=== PATIENT | female | born 1955 | race Asian ===

== ENCOUNTER 2024-12-13 12:40 | Emergency (ER) | payer MEDICARE, SELFPAY ==
[2024-12-13] VITALS (12 sets, daily range): BP systolic 107–134; BP diastolic 58–68; PULSE 60–73; RESP 16–20; TEMP 36.8; O2SAT 95–100; BMI 17.9
--- NOTE | 2024-12-13 13:09 | EKG_ITS ---
[address] [address] Test Date: 2024-12-13 Pat Name: Leighann Ocampo Department: [facility] Room: Gender: Female Scale Technician: JOHN : 1955 Requested By: Order Number: [id number] Reading MD: Ilya Joseph Measurements Intervals [place] Rate: 57 P: 83 LA: 158 QRS: 32 QRSD: 88 T: -38 QT: 404 QTc: 393 Interpretive Statements Sinus bradycardia Nonspecific T wave abnormality Electronically Signed On 12-13-2024 15:21:23 PST by Ilya Joseph
[2024-12-13 13:35] LABS: Add Manual Diff / Slide Review NO; Basophils Absolute Auto 200 /uL (0-100); Basophils Percent Auto 2.1 % (0-2); Eosinophils Absolute Auto 600 /uL (0-450); Hematocrit 36.6 % (36-46); Hemoglobin 11.9 g/dL (12.0-16.0); Lymphocytes Absolute Auto 1600 /uL (1100-4500); Mean Corpuscular HGB Conc 32.7 % (30-36); Mean Corpuscular Hemoglobin 27.1 PG (26-34); Monocytes Absolute Auto 600 /uL (0-900); Monocytes Percent Auto 7.7 % (3-14); Neutrophils Absolute Auto 5300 /uL (1500-7000); Neutrophils Percent Auto 64.2 % (50-75); Platelet Count 267 X10^3/uL (150-400); Red Blood Cell Count 4.41 X10^6/uL (4.0-5.2); Red Cell Distribution Width 14.9 % (11.6-14.8); White Blood Cell Count 8.3 X10^3/uL (4.5-11.0)
[2024-12-13 13:43] LABS: Alanine Aminotransferase 35 IU/L (<35); Albumin 4.5 g/dL (3.5-5.0); Albumin Globulin Ratio 1.3 (1.0-2.8); Alkaline Phosphatase 56 U/L (38-126); Aspartate Aminotransferase 85 IU/L (14-36); BUN Creatinine Ratio 18.4 (6-22); Bilirubin Total 0.6 mg/dL (0.2-1.3); Blood Urea Nitrogen 18 mg/dL (7-17); Calcium 9.6 mg/dL (8.4-10.2); Carbon Dioxide 28 mmol/L (22-32); Chloride 104 mmol/L (98-107); Estimated Glomerular Filt Rate > 60 mL/min (>60); Globulin 3.4 g/dL (1.7-4.1); Glucose 97 mg/dL (80-110); HEMOLYSIS < 15 (0-50); Lipase 276 U/L (23-300); Potassium 3.7 mmol/L (3.4-5.1); Sodium 139 mmol/L (137-145); Total Protein 7.9 g/dL (6.3-8.2)
--- NOTE | 2024-12-13 17:02 | PC.NURSE ---
This RN's first interaction with patient.
[2024-12-13 17:19] LABS: Ictotest Urine Negative (Negative)
--- NOTE | 2024-12-13 17:39 | ED.ABDPAIN ---
HPI - Abdominal Pain <Socorro Islas DO - Last Filed: 12/14/24 18:16> General Chief Complaint: Abdominal Pain Stated Complaint: abd px Time Seen by Provider: 12/13/24 17:33 Source: patient, RN notes reviewed and old records reviewed Mode of arrival: Ambulatory Limitations: no limitations History of Present Illness HPI narrative: 69-year-old female history of CVA on aspirin, hypertension, dyslipidemia, reflux remote history of GI bleed who presents with complaint of epigastric pain. Patient states she was playing out on the porch in the snow then went and had a snack then sat down and was resting on the couch when she got epigastric pain that she describes as very intense. Patient states it lasted throughout the night and into today. She would some nausea and dry heaves early this morning. No fevers or chills. States pain does not radiate to her back or anywhere else. It is resolved almost completely resolved at this time. Denies any shortness of breath. Denies any black or bloody stools no diarrhea or constipation. No urinary symptoms. No new swelling in extremities. Patient states has not been having symptoms recently. Took an omeprazole this morning and after an hour to started to decrease. Patient states she takes an aspirin 81 mg daily, amlodipine 5 mg, telmisartan 40 mg atorvastatin 20 mg as well as omeprazole 20 mg daily. No prior surgeries. Has a allergy to medication but they do not know what it is. Patient and notes she did have a blood transfusion after having either gastritis or an ulcer remotely. Her primary care is through the [employer] [facility]. She sees neurology at [facility]. She was accompanied by her Related Data Previous Rx's Medication Instructions Recorded aluminum-mag hydroxide-simethicone 10 ml PO QID PRN dyspepsia #3,000 12/13/24 200 mg-200 mg-20 mg/5 mL oral susp mL (Maalox Advanced) Review of Systems <Socorro Islas DO - Last Filed: 12/14/24 18:16> Review of Systems ROS Unobtainable: All systems reviewed & are unremarkable except as noted in HPI and below Patient History <Socorro Islas DO - Last Filed: 12/14/24 18:16> Social History Smoking Status: Never smoker Smoking Status: Never smoker Exam <Socorro Islas DO - Last Filed: 12/14/24 18:16> Narrative Exam Narrative: GENERAL: Alert and oriented x three, female in mild distress HEENT: Head normocephalic, atraumatic, EOMI, pupils reactive, face symmetric, moist mucous membranes NECK: Supple, full range of motion CARDIOVASCULAR: Regular rate and rhythm without murmurs, rubs or gallops. RESPIRATORY: Breath sounds equal bilaterally, no wheezes rales or rhonchi. ABDOMEN: Soft, very mild epigastric tenderness.. Normoactive bowel sounds all 4 quadrants. No guarding or rebound, rigidity, no mass : No CVA tenderness EXTREMITIES: Normal range of motion, no clubbing or edema. Neurovascularly intact NEUROLOGICAL: Cranial nerves II through XII grossly intact. Moving all extremities SKIN: Warm, dry, no petechiae, no rashes or lesions. Initial Vital Signs Initial Vital Signs: Vital Signs Temperature 98.2 F 12/13/24 12:59 Pulse Rate 60 12/13/24 12:59 Respiratory Rate 20 12/13/24 12:59 Blood Pressure 126/61 12/13/24 12:59 Pulse Oximetry 100 12/13/24 12:59 Oxygen Delivery Method Room Air 12/13/24 12:59 <Paco Gage DO - Last Filed: 12/13/24 21:59> Initial Vital Signs Initial Vital Signs: Vital Signs Temperature 98.2 F 12/13/24 12:59 Pulse Rate 60 12/13/24 12:59 Respiratory Rate 20 12/13/24 12:59 Blood Pressure 126/61 12/13/24 12:59 Pulse Oximetry 100 12/13/24 12:59 Oxygen Delivery Method Room Air 12/13/24 12:59 Course <Socorro Islas DO - Last Filed: 12/14/24 18:16> Orders Ordered: Discontinued Medications Ondansetron HCl (Ondansetron 4 Mg/2 Ml Inj) 4 mg IV NOW PRN PRN Reason: Nausea And Vomiting Ondansetron HCl (Ondansetron 4 Mg Odt) 4 mg PO NOW PRN PRN Reason: Nausea And Vomiting Vital Signs Vital signs: Vital Signs - 8 hr 12/13/24 16:58 12/13/24 16:59 12/13/24 16:59 Pulse Rate 73 62 Respiratory Rate Blood Pressure 134/61 Pulse Oximetry 95 100 Oxygen Delivery Method 12/13/24 17:00 12/13/24 17:00 12/13/24 17:30 Pulse Rate 61 Respiratory Rate Blood Pressure 122/63 130/60 Pulse Oximetry 100 Oxygen Delivery Method 12/13/24 17:30 12/13/24 18:00 12/13/24 18:00 Pulse Rate 62 64 Respiratory Rate Blood Pressure 132/66 Pulse Oximetry 99 98 Oxygen Delivery Method 12/13/24 18:30 12/13/24 18:30 12/13/24 19:00 Pulse Rate 70 67 Respiratory Rate Blood Pressure 131/68 Pulse Oximetry 97 98 Oxygen Delivery Method 12/13/24 19:00 12/13/24 19:30 12/13/24 19:30 Pulse Rate 61 Respiratory Rate 18 Blood Pressure 119/62 117/60 Pulse Oximetry 99 Oxygen Delivery Method Room Air 12/13/24 20:00 12/13/24 20:00 12/13/24 20:30 Pulse Rate 69 62 Respiratory Rate 18 16 Blood Pressure 107/60 Pulse Oximetry 96 98 Oxygen Delivery Method Room Air Room Air 12/13/24 20:30 12/13/24 21:00 Pulse Rate Respiratory Rate 16 Blood Pressure 112/58 L Pulse Oximetry 98 Oxygen Delivery Method Room Air <Paco Gage DO - Last Filed: 12/13/24 21:59> Orders Ordered: Discontinued Medications Ondansetron HCl (Ondansetron 4 Mg/2 Ml Inj) 4 mg IV NOW PRN PRN Reason: Nausea And Vomiting Ondansetron HCl (Ondansetron 4 Mg Odt) 4 mg PO NOW PRN PRN Reason: Nausea And Vomiting Vital Signs Vital signs: Vital Signs - 8 hr 12/13/24 16:58 12/13/24 16:59 12/13/24 16:59 Pulse Rate 73 62 Respiratory Rate Blood Pressure 134/61 Pulse Oximetry 95 100 Oxygen Delivery Method 12/13/24 17:00 12/13/24 17:00 12/13/24 17:30 Pulse Rate 61 Respiratory Rate Blood Pressure 122/63 130/60 Pulse Oximetry 100 Oxygen Delivery Method 12/13/24 17:30 12/13/24 18:00 12/13/24 18:00 Pulse Rate 62 64 Respiratory Rate Blood Pressure 132/66 Pulse Oximetry 99 98 Oxygen Delivery Method 12/13/24 18:30 12/13/24 18:30 12/13/24 19:00 Pulse Rate 70 67 Respiratory Rate Blood Pressure 131/68 Pulse Oximetry 97 98 Oxygen Delivery Method 12/13/24 19:00 12/13/24 19:30 12/13/24 19:30 Pulse Rate 61 Respiratory Rate 18 Blood Pressure 119/62 117/60 Pulse Oximetry 99 Oxygen Delivery Method Room Air 12/13/24 20:00 12/13/24 20:00 12/13/24 20:30 Pulse Rate 69 62 Respiratory Rate 18 16 Blood Pressure 107/60 Pulse Oximetry 96 98 Oxygen Delivery Method Room Air Room Air 12/13/24 20:30 12/13/24 21:00 Pulse Rate Respiratory Rate 16 Blood Pressure 112/58 L Pulse Oximetry 98 Oxygen Delivery Method Room Air MDM - Abdominal Pain <Socorro Islas, DO - Last Filed: 12/14/24 18:16> Lab Data 12/13/24 13:20 12/13/24 13:20 Labs: Lab Results 12/13/24 12/13/24 Range/Units 13:20 16:50 WBC 8.3 (4.5-11.0) X10^3/uL RBC 4.41 (4.0-5.2) X10^6/uL Hgb 11.9 L (12.0-16.0) g/dL Hct 36.6 (36-46) % MCV 83.0 (80-100) fL MCH 27.1 (26-34) PG MCHC 32.7 (30-36) % RDW 14.9 H (11.6-14.8) % Plt Count 267 (150-400) X10^3/uL Neut % (Auto) 64.2 (50-75) % Lymph % (Auto) 19.0 L (25-40) % [place] % (Auto) 7.7 (3-14) % Eos % (Auto) 7.0 H (2-4) % Baso % (Auto) 2.1 H (0-2) % Neut # (Auto) 5300 (1182-2468) /uL Lymph # (Auto) 1600 (0057-3422) /uL [place] # (Auto) 600 (0-900) /uL Eos # (Auto) 600 H (0-450) /uL Baso # (Auto) 200 H (0-100) /uL Sodium 139 (137-145) mmol/L Potassium 3.7 (3.4-5.1) mmol/L Chloride 104 (98-107) mmol/L Carbon Dioxide 28 (22-32) mmol/L BUN 18 H (7-17) mg/dL Creatinine 0.98 (0.52-1.04) mg/dL Estimated GFR > 60 (>60) mL/min BUN/Creatinine Ratio 18.4 (6-22) Glucose 97 (80-110) mg/dL Calcium 9.6 (8.4-10.2) mg/dL Total Bilirubin 0.6 (0.2-1.3) mg/dL AST 85 H (14-36) IU/L ALT 35 H (<35) IU/L Alkaline Phosphatase 56 (38-126) U/L Total Creatine Kinase 60 (30-135) U/L Troponin I < 0.012 (0.01-0.034) ng/mL Total Protein 7.9 (6.3-8.2) g/dL Albumin 4.5 (3.5-5.0) g/dL Globulin 3.4 (1.7-4.1) g/dL Albumin/Globulin Ratio 1.3 (1.0-2.8) Lipase 276 (23-300) U/L Ur Bilirubin Confirm Negative (Negative) Point of care testing: Urine Dip Bedside Urine Glucose Negative Bedside Urine Bilirubin + 1 Bedside Urine Ketone - Negative Urine Specific [place] 1.025 Bedside Urine Occult Blood - Negative Bedside Urine pH 6 Bedside Urine Protein - Negative Bedside Urine Urobilinogen - Negative Bedside Urine Nitrite - Negative Bedside Urine Leukocytes - Negative Esterase ECG Data Attestation: I personally reviewed and interpreted this ECG as follows: Interpretation: Sinus bradycardia rate of 57 W[place] 158 QRS 88 QTC of 393, no acute ST elevation. Patient does not have prior for comparison. [facility] Narrative Medical decision making narrative: Labs show white count 8.3 hemoglobin 11.9 platelets of 267. Electrolytes showed no acute changes BUN 18. Creatinine of 0.98, AST ALT are 85 and 30 bilirubin is 0.6 lipase is negative at 276 alk-phos is 56. Total CK and troponin EKG shows sinus bradycardia, no priors for comparison. Abdominal ultrasound Patient states pain has resolved sats epigastric sounds like it actually started after eating and then resting and not with activity. Patient has had greater than 12 hours of symptoms and improved at this time. <Paco Gage, - Last Filed: 12/13/24 21:59> Lab Data Labs: Lab Results 12/13/24 12/13/24 Range/Units 13:20 16:50 WBC 8.3 (4.5-11.0) X10^3/uL RBC 4.41 (4.0-5.2) X10^6/uL Hgb 11.9 L (12.0-16.0) g/dL Hct 36.6 (36-46) % MCV 83.0 (80-100) fL MCH 27.1 (26-34) PG MCHC 32.7 (30-36) % RDW 14.9 H (11.6-14.8) % Plt Count 267 (150-400) X10^3/uL Neut % (Auto) 64.2 (50-75) % Lymph % (Auto) 19.0 L (25-40) % [place] % (Auto) 7.7 (3-14) % Eos % (Auto) 7.0 H (2-4) % Baso % (Auto) 2.1 H (0-2) % Neut # (Auto) 5300 (1677-1202) /uL Lymph # (Auto) 1600 (1774-2410) /uL [place] # (Auto) 600 (0-900) /uL Eos # (Auto) 600 H (0-450) /uL Baso # (Auto) 200 H (0-100) /uL Sodium 139 (137-145) mmol/L Potassium 3.7 (3.4-5.1) mmol/L Chloride 104 (98-107) mmol/L Carbon Dioxide 28 (22-32) mmol/L BUN 18 H (7-17) mg/dL Creatinine 0.98 (0.52-1.04) mg/dL Estimated GFR > 60 (>60) mL/min BUN/Creatinine Ratio 18.4 (6-22) Glucose 97 (80-110) mg/dL Calcium 9.6 (8.4-10.2) mg/dL Total Bilirubin 0.6 (0.2-1.3) mg/dL AST 85 H (14-36) IU/L ALT 35 H (<35) IU/L Alkaline Phosphatase 56 (38-126) U/L Total Creatine Kinase 60 (30-135) U/L Troponin I < 0.012 (0.01-0.034) ng/mL Total Protein 7.9 (6.3-8.2) g/dL Albumin 4.5 (3.5-5.0) g/dL Globulin 3.4 (1.7-4.1) g/dL Albumin/Globulin Ratio 1.3 (1.0-2.8) Lipase 276 (23-300) U/L Ur Bilirubin Confirm Negative (Negative) Point of care testing: Urine Dip Bedside Urine Glucose Negative Bedside Urine Bilirubin + 1 Bedside Urine Ketone - Negative Urine Specific [place] 1.025 Bedside Urine Occult Blood - Negative Bedside Urine pH 6 Bedside Urine Protein - Negative Bedside Urine Urobilinogen - Negative Bedside Urine Nitrite - Negative Bedside Urine Leukocytes - Negative Esterase Imaging Data US - abdomen: Radiologist's Impression: [address] [address] Ultrasound Report Signed Patient: Leighann Ocampo MR#: [id number] : 1955 Acct:[id number] Age/Sex: 69 / F Date of Service: 12/13/24 Loc: ED Accession Number: [id number] Procedure: US abdomen limited Ordering Provider: Socorro Islas D.O. PROCEDURE: US ABDOMEN LIMITED INDICATIONS: RUQ/epigastric pain TECHNIQUE: Real-time scanning was performed of the abdominal and retroperitoneal organs, with image documentation. COMPARISON: [facility], US, US ABDOMEN LIMITED, 04/19/2024, 19:51. FINDINGS: Liver: Liver is normal in size and homogeneous in echotexture. Gallbladder: Small gallstones are present. A larger gallstone measuring 6 mm. No wall thickening. No pericholecystic edema. Negative sonographic Carpenter's sign. Biliary ducts: Intrahepatic bile ducts are non-dilated. Extrahepatic bile duct caliber measures 8 mm. Normal is 6-7 mm or less in diameter, or 10 mm or less post-cholecystectomy. Pancreas: Visualized portions of the pancreas are sonographically normal. Miscellaneous: No free abdominal fluid. IMPRESSION: No acute cholecystitis demonstrated. Small gallstones. MDM Narrative Medical decision making narrative: Labs show white count 8.3 hemoglobin 11.9 platelets of 267. Electrolytes showed no acute changes BUN 18. Creatinine of 0.98, AST ALT are 85 and 30 bilirubin is 0.6 lipase is negative at 276 alk-phos is 56. Total CK and troponin EKG shows sinus bradycardia, no priors for comparison. Abdominal ultrasound Patient states pain has resolved sats epigastric sounds like it actually started after eating and then resting and not with activity. Patient has had greater than 12 hours of symptoms and improved at this time. Dr. Gage (1800): Received sign-out from [facility] provider, patient initially presented for abdominal pain while here started complaining of chest/epigastric pain, troponin negative, final disposition pending right upper quadrant ultrasound as well as re-evaluation. 2155: Patient re-evaluated no new complaints at this time, informed her of her ultrasound results and need to follow up with GI, patient verbalized understanding of this agrees to being discharged home with outpatient follow up Discharge Plan Departure Patient Disposition: Home Clinical Impression: Epigastric pain Activity Restrictions/Additional Instructions: Please follow up for recheck. Continue your omeprazole daily, you can take 40 mg daily instead of your usual 20 mg. Please return for fevers, new or worsening abdominal back or flank pain, persistent vomiting, black or bloody stools, lightheadedness or passing out or other new or concerning changes. Prescriptions: New alum-mag hydroxide-simeth [Maalox Advanced] 200-200-20 mg/5 mL suspension 10 ml PO QID PRN (Reason: dyspepsia) Qty: 3000 0RF Rx Instructions: administer between meals and at bedtime Referrals: Timi Morris MD [Non-Staff] - Provider,Mario GROVES [Primary Care Provider] - Stand Alone Forms: Patient Portal/API/Survey
--- NOTE | 2024-12-13 17:53 | DI.US.S_ITS ---
PROCEDURE: US ABDOMEN LIMITED INDICATIONS: RUQ/epigastric pain TECHNIQUE: Real-time scanning was performed of the abdominal and retroperitoneal organs, with image documentation. COMPARISON: [facility], US, US ABDOMEN LIMITED, 04/19/2024, 19:51. FINDINGS: Liver: Liver is normal in size and homogeneous in echotexture. Gallbladder: Small gallstones are present. A larger gallstone measuring 6 mm. No wall thickening. No pericholecystic edema. Negative sonographic Carpenter's sign. Biliary ducts: Intrahepatic bile ducts are non-dilated. Extrahepatic bile duct caliber measures 8 mm. Normal is 6-7 mm or less in diameter, or 10 mm or less post-cholecystectomy. Pancreas: Visualized portions of the pancreas are sonographically normal. Miscellaneous: No free abdominal fluid. IMPRESSION: No acute cholecystitis demonstrated. Small gallstones. Dictated by: Shreyas Collado M.D. on 12/13/2024 at 19:34 Approved by: Shreyas Collado M.D. on 12/13/2024 at 19:35
[2024-12-13 18:13] LABS: Creatine Kinase 60 U/L (30-135)
[2024-12-13 18:26] LABS: Troponin I < 0.012 ng/mL (0.01-0.034)
--- NOTE | 2024-12-13 20:08 | PC.NURSE ---
Taking po fluids wel without difficulty.
--- NOTE | 2024-12-13 21:02 | PC.NURSE ---
Pt and asking how much longer until pt is discharged. Explained that all testing is resulted but the doctor has not had the chance to lummi back and evaluate all findings. Pt states Just take out my IV and we will go. The doctor can call us with the results. Explained that would not be possible, if they wanted results to be interpreted by the ED physician they would need to stay. Pt states I'm fine with that. states No, we will wait. I want full responsibility on the doctor.
== END 2024-12-13 22:06 | disposition home or self-care (01) ==
PROVIDERS: Emergency Provider Student in an Organized Health Care Education/Training Program; Referring Provider Emergency Medicine
DX: R10.13 Epigastric pain (principal); I10 Essential (primary) hypertension; E78.5 Hyperlipidemia, unspecified; R11.0 Nausea; R00.1 Bradycardia, unspecified; Z86.73 Personal history of transient ischemic attack (TIA), and cerebral infarction without residual deficits
CPT/HCPCS: 36415; 76705; 80053; 81003; 82550; 83690; 84484; 85025; 93005; 99283; 99284

== ENCOUNTER 2025-08-19 09:55 | Day surgery (SDC) | payer MEDICARE, OTHER, SELFPAY ==
[2025-08-19] MEDS: LACTATED RINGERS 1,000 ML 42 ML IV (10:33)
[2025-08-19 10:38] VITALS: BP 116/75; PULSE 75; RESP 16; TEMP 36.9; O2SAT 100
--- NOTE | 2025-08-19 11:02 | PM.HP.IH.1 ---
History of Present Illness History of Present Illness Date Patient Seen: 08/19/25 Chief complaint: SDC Narrative: Colorectal cancer screening Meds Home Medications and Allergies Home Medications ?Medication ?Instructions ?Recorded ?Confirmed ?Type aluminum-mag hydroxide-simethicone 10 ml PO QID PRN dyspepsia #3,000 12/13/24 08/19/25 Rx 200 mg-200 mg-20 mg/5 mL oral susp mL (Maalox Advanced) peg 3350-sod [id number] See Rx Instructions PO .COMPLEX #2 07/15/25 08/19/25 Rx 178.7-7.3-0.5-1.12-0.9 gram oral mL soln (Suflave) amlodipine 5 mg tablet 5 mg PO DAILY 08/19/25 08/19/25 History aspirin 81 mg chewable tablet 1 tab PO DAILY 08/19/25 08/19/25 History atorvastatin 20 mg tablet 20 mg PO DAILY 08/19/25 08/19/25 History rizatriptan 10 mg tablet 10 mg PO DAILY 08/19/25 08/19/25 History telmisartan 40 mg tablet 40 mg PO DAILY 08/19/25 08/19/25 History Exam Vital Signs (past 8 hours): - 08/19/25 10:38 Temperature 98.4 F Pulse Rate 75 Respiratory Rate 16 Blood Pressure 116/75 Pulse Oximetry 100 Oxygen Delivery Method Room Air Oxygen Delivery Method Room Air Narrative Exam Narrative: Oropharynx free of lesions Chest clear to auscultation percussion Cardiac exam reveals no S3 or murmur Assessment & Plan Assessment & Plan narrative: Need for follow-up colorectal cancer screening. Risks, benefits, alternatives have been explained. Time-Based Coding :: [TOTAL MINUTES] spent with patient and on the chart (including review of chart, obtaining history, exam, reviewing outside data, placing orders, documenting exam and treatment plan, and counseling patient) on [DATE]. [employer] Document charge(s): No
--- NOTE | 2025-08-19 11:04 | PM.OP.COLON ---
Operative Date/Time/Diagnoses Date of procedure: 08/19/25 Time of procedure: 11:29 Pre-op diagnosis: See indication and findings Post-op diagnosis: same Procedure & Clinicians Study performed: Colonoscopy Same procedure(s) as scheduled: Yes Indications: Screening for colorectal cancer Surgeon: Po Little Anesthesia Type: Other Procedure Notes Procedure in detail: After informed consent was obtained the patient was placed in left lateral decubitus position. Video colonoscope was placed in the rectum slowly advanced cecum. Preparation was good. On slow withdrawal mucosa was carefully examined. The scope was removed. The patient tolerated procedure well. Blood loss none Complications none Sedation mac Findings 1. Normal colonoscopy to cecum Patient should have follow-up colonoscopy in 5 years
[2025-08-19 11:30] VITALS: BP 95/54; PULSE 69; RESP 18; TEMP 36.9; O2SAT 98
[2025-08-19 11:35] VITALS: BP 91/50; PULSE 62; RESP 18; O2SAT 100
[2025-08-19 11:40] VITALS: BP 102/55; PULSE 57; RESP 20; O2SAT 100
[2025-08-19 11:46] VITALS: BP 133/65; PULSE 69; RESP 20; TEMP 36.9; O2SAT 69
== END 2025-08-19 12:02 | disposition home or self-care (01) ==
PROVIDERS: Referring Provider Internal Medicine Gastroenterology; Visit Provider Internal Medicine Gastroenterology
PROC: 0DJD8ZZ Inspection of Lower Intestinal Tract, Via Natural or Artificial Opening Endoscopic (ICD-10-PCS; CPT 45378; principal; 2025-08-19 11:30)
DX: Z12.11 Encounter for screening for malignant neoplasm of colon (principal)
CPT/HCPCS: G0121; J2704; J7120